=== PATIENT | female | born 1945 | race Caucasian/White ===

== ENCOUNTER 2023-04-28 14:54 | Outpatient (RCR) | payer MEDICARE, SELFPAY | END 2023-04-28 23:59 | disposition home or self-care (01) | LOC: RPT 14:54 | PROVIDERS: ATTENDING PHYSICIAN Physician Assistant Surgical; FAMILY PHYSICIAN Family Medicine | DX: S76.109D Unspecified injury of unspecified quadriceps muscle, fascia and tendon, subsequent encounter (principal); Z73.6 Limitation of activities due to disability | CPT/HCPCS: 97010; 97110; 97112; 97116; 97530 ==

== ENCOUNTER → 2023-04-29 07:30 | Outpatient (REF) | payer MEDICARE, SELFPAY | LOC: EMG 07:30 | PROVIDERS: ATTENDING PHYSICIAN Family Medicine | DX: R20.0 Anesthesia of skin (principal) | CPT/HCPCS: 95886; 95910 ==

== ENCOUNTER → 2023-05-19 08:21 | Outpatient (REF) | payer MEDICARE, SELFPAY ==
[2023-05-19 09:27] LABS: ALT (SGPT) < 10 U/L (0-35); AST (SGOT) 19 U/L (14-36); Albumin 4.1 g/dl (3.5-5.0); Alkaline Phosphatase 63 U/L (38-126); Blood Urea Nitrogen 13 mg/dl (7-17); Calcium 9.6 mg/dl (8.4-10.2); Carbon Dioxide 29 mmol/L (22-30); Chloride 98 mmol/L (98-107); Glucose 95 mg/dl (70-99); Potassium 5.1 mmol/L (3.5-5.1); Sodium 135 mmol/L (135-145); Total Bilirubin 0.6 mg/dl (0.2-1.3); Total Protein 6.6 g/dl (6.3-8.2); eGFR > 60.00
[2023-05-19 09:36] LABS: Free T4 0.76 ng/dl (0.78-2.19)
[2023-05-19 09:37] LABS: Free T3 3.38 pg/ml (2.77-5.27)
[2023-05-19 09:49] LABS: TSH 1.46 uIU/ml (0.47-4.68)
== END ==
LOC: REG 08:21
PROVIDERS: ATTENDING PHYSICIAN Internal Medicine Endocrinology, Diabetes & Metabolism; FAMILY PHYSICIAN Family Medicine
DX: E05.90 Thyrotoxicosis, unspecified without thyrotoxic crisis or storm (principal)
CPT/HCPCS: 36415; 80053; 84439; 84443; 84481

== ENCOUNTER → 2023-05-28 15:34 | Outpatient (REF) | payer MEDICARE, SELFPAY | LOC: RAD 15:34 | PROVIDERS: ATTENDING PHYSICIAN Specialist; FAMILY PHYSICIAN Family Medicine | DX: R26.89 Other abnormalities of gait and mobility (principal) | CPT/HCPCS: 70450 ==

== ENCOUNTER 2023-05-29 14:18 | Outpatient (RCR) | payer MEDICARE, SELFPAY | END 2023-05-29 23:59 | disposition home or self-care (01) | LOC: RPT 14:18 | PROVIDERS: ATTENDING PHYSICIAN Physician Assistant Surgical; FAMILY PHYSICIAN Family Medicine | DX: S76.109D Unspecified injury of unspecified quadriceps muscle, fascia and tendon, subsequent encounter (principal); Z73.6 Limitation of activities due to disability | CPT/HCPCS: 97110; 97112; 97116; 97530 ==

== ENCOUNTER → 2023-06-23 16:17 | Outpatient (REF) | payer MEDICARE, SELFPAY ==
[2023-06-23 18:51] LABS: Vitamin B12 812 pg/ml (239-931)
== END ==
LOC: REG 16:17
PROVIDERS: ATTENDING PHYSICIAN Family Medicine
DX: E53.8 Deficiency of other specified B group vitamins (principal)
CPT/HCPCS: 36415; 82607

== ENCOUNTER 2023-06-27 12:43 | Outpatient (RCR) | payer MEDICARE, SELFPAY | END 2023-06-27 23:59 | disposition home or self-care (01) | LOC: RPT 12:43 | PROVIDERS: ATTENDING PHYSICIAN Physician Assistant Surgical; FAMILY PHYSICIAN Family Medicine | DX: S76.109D Unspecified injury of unspecified quadriceps muscle, fascia and tendon, subsequent encounter (principal); Z73.6 Limitation of activities due to disability | CPT/HCPCS: 97110; 97112; 97116 ==

== ENCOUNTER → 2023-07-14 09:16 | Outpatient (REF) | payer MEDICARE, SELFPAY | LOC: RAD 09:16 | PROVIDERS: ATTENDING PHYSICIAN Family Medicine | DX: I83.893 Varicose veins of bilateral lower extremities with other complications (principal) | CPT/HCPCS: 93970 ==

== ENCOUNTER 2023-07-21 15:06 | Outpatient (RCR) | payer MEDICARE, SELFPAY | END 2023-07-21 23:59 | disposition home or self-care (01) | LOC: RPT 15:06 | PROVIDERS: ATTENDING PHYSICIAN Physician Assistant Surgical; FAMILY PHYSICIAN Family Medicine | DX: S76.109D Unspecified injury of unspecified quadriceps muscle, fascia and tendon, subsequent encounter (principal); Z73.6 Limitation of activities due to disability | CPT/HCPCS: 97110; 97112; 97116; 97530 ==

== ENCOUNTER 2023-08-18 15:10 | Outpatient (RCR) | payer MEDICARE, SELFPAY | END 2023-08-18 23:59 | disposition home or self-care (01) | LOC: RPT 15:10 | PROVIDERS: ATTENDING PHYSICIAN Physician Assistant Surgical; FAMILY PHYSICIAN Family Medicine | DX: S76.109D Unspecified injury of unspecified quadriceps muscle, fascia and tendon, subsequent encounter (principal); Z73.6 Limitation of activities due to disability; R26.89 Other abnormalities of gait and mobility | CPT/HCPCS: 97110; 97112; 97140; 97530 ==

== ENCOUNTER 2023-08-20 21:47 | Emergency (ER) | payer MEDICARE, SELFPAY ==
[2023-08-20 21:49] VITALS: BP 125/83; BMI 30.3
--- NOTE | 2023-08-20 23:44 | ED.GENMED ---
History of Present Illness
General
Chief Complaint: Fall
Source: patient
Exam Limitations: none
Time Seen by Provider: 08/20/23 23:36
Travel History
Have you had any contact with someone who has COVID-19?: No
Do you have any symptoms of coronavirus? Fever > 100 degrees, chills, cough, shortness of breath, sore throat, loss of taste or smell, muscle aches, or headache?: No
History of Present Illness
History of Present Illness:
See MDM
Past History
Past History
ED Past Medical History: HTN and Hypercholesterolemia
ED Past Surgical History: Gynecological
Social History
Tobacco: Non-smoker
Alcohol: Occasional
Drug: None
Living: alone
Phy Exam
Physical Exam
Physical Exam:
See MDM
Course
Orders/Labs/Results
Orders:
Orders
08/20/23 21:52
Shoulder, Right, Trauma [CR Shoulder, Trauma - Right] Urgent
Comment:
Reason For Exam: pain
08/20/23 23:44
Acetaminophen with Codeine [Tylenol #3] 1 tablet PO NOW STA
Vital Signs
Initial and Last Documented VS:
Initial Vital Signs
Temp Pulse Resp BP Pulse Ox
98 F 92 16 125/83 98
08/20/23 21:49 08/20/23 21:49 08/20/23 21:49 08/20/23 21:49 08/20/23 21:49
Last Documented Vital Signs
Temp Pulse Resp BP Pulse Ox
98 F 92 16 125/83 98
08/20/23 21:49 08/20/23 21:49 08/20/23 21:49 08/20/23 21:49 08/20/23 21:49
MDM/Problems Addressed
Differential Diagnosis Includes:
HPI and MDM Narrative:
78-year-old female presenting with right shoulder injury. She fell out of bed the other night. Due to ongoing pain despite taking Tylenol at home, she came in. On exam, patient states her pain well-controlled unless she tries to move her shoulder.
I cannot elicit any tenderness to palpation. There is no bony tenderness. The joint is stable and the distal extremity is neurovascular intact. There is pain with abduction and internal rotation. We discussed the possibility of rotator cuff
injury and discussed follow-up with orthopedics. Will avoid shoulder sling. 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 I want to frozen shoulder. Patient acknowledges understanding
Physical exam
General: Well appearing and non-toxic
HEENT: protecting airway
Neck: appears supple
CV: No evidence of cyanosis
Resp: No accessory muscle use
Abd: Non-distended
Extremities: No deformities. No bony tenderness to palpation of right shoulder. No edema noted. Distal extremity neurovascular intact pain with abduction and internal rotation
Neuro: alert
Psych: Normal affect
Skin: Intact
Problems Addressed including Acute and Chronic Conditions affecting care:
1. Right shoulder injury
Acuity: acute
Prognosis: stable
Details: X-ray negative for fracture. Discussed the possibility of rotator cuff injury. Patient states she cannot take NSAIDs. She has tolerated Tylenol 3 in the past. Will write short prescription
Differential Diagnosis (but not limited to): Shoulder fracture, rotator cuff injury
Testing considered: Shoulder CT but no bony tenderness elicited
Drug therapy (if applicable): OTC meds, please see d/c instruction regarding Rx drugs
Amount and/or Complexity of Data Reviewed
Clinical info obtained from: Patient
External data reviewed: N/A
Labs I independently reviewed (but not limited to): N/A
Radiology: X-ray independently reviewed: Shoulder x-ray shows arthritic changes. No fracture
Pulse Ox: not hypoxic
EKG independently reviewed: N/A
Logistical Engineer: N/A
Critical Care: N/A
Risk of Complication:
Social Determinants of health: Good social support
Discussed with other providers: N/A
Escalation of Care includes Admit/Obs: After being observed in the Emergency Department, pt stable for discharge.
Occasional wrong word or 'sound a like' substitutions may have occurred due to the inherent limitations of voice recognition software. Read the chart carefully and recognize, using context, where substitutions have occurred.
*Critical Care Note
Total Time (30-74mins, 75-104mins- exclusive of procedures): Not Applicable
ED Attending Note
-
Portions of this chart may have been created with voice recognition software.� Occasional wrong word or��sound alike� substitutions may have occurred due to the inherent limitations of voice recognition software.
Discharge Plan
Departure
Patient Disposition: Home (Routine Discharge)
Date of Disposition: 08/20/23
Time of Disposition: 23:44
Patient with high blood pressure during this ER visit?: No
Discharge Problem:
Injury of right rotator cuff
Prescriptions:
New
acetaminophen-codeine 300-30 mg Tablet
1 tab PO Q4HPRN PRN (Reason: pain) Qty: 10 0RF
No Action
hydrocortisone [Cortef] 5 MG tablet
10 mg PO BID
valsartan [Diovan] 80 MG tablet
40 mg PO DAILY
methimazole 5 mg Tablet
5 mg PO DAILY
rosuvastatin [Crestor] 5 mg Tablet
5 mg PO DAILY
duloxetine [Cymbalta] 30 mg Capsule,Delayed Release(Dr/Ec)
30 mg PO DAILY
aspirin 325 mg Tablet
325 mg PO DAILY Qty: 1 0RF
Rx Instructions:
For DVT prophylaxis post Ortho surgery
docusate sodium 100 mg Capsule
100 mg PO BID Qty: 1 0RF
sennosides [Senna Laxative] 8.6 mg Tablet
17.2 mg PO BID Qty: 1 0RF
oxycodone 5 mg Tablet
5 mg PO Q4HPRN PRN (Reason: mild pain) Qty: 12 0RF
acetaminophen 325 mg Tablet
650 mg PO Q4HWA Qty: 1 0RF
Referrals:
Yumiko Silva DO [Family Provider] -
Dariel Seo MD [Active] -
Activity Restrictions/Additional Instructions:
Please return for any worsening symptoms.
You may return at any time if you have further concerns.
Please follow up with your doctor at the first available appointment, preferably this week.
Please make an appointment to see the orthopedist.
You were given a prescription for narcotics. If you require this pain medicine, please take a daily [id number] stool softener to avoid constipation.
Thank you for choosing [facility].
Interventions
Interventions:
*Risk Screen - Suicide Last Done: 08/20/23 21:49
*Neglect/Abuse Screening Last Done: 08/20/23 21:49
ED- Fall Risk Assessment Last Done: 08/20/23 21:49
ED-Musculoskeletal Assessment Last Done: 08/20/23 22:12
ED- Neurological Assessment Last Done: 08/20/23 22:12
ED-Skin Assessment Last Done: 08/20/23 22:12
Discharge Date and Time
Print Language: CHINESE
[2023-08-20] MEDS: TYLENOL #3 1 TABLET PO (23:52)
[2023-08-21 00:01] VITALS: BP 139/91
== END 2023-08-21 00:01 | disposition home or self-care (01) ==
LOC: EMR 21:47
PROVIDERS: EMERGENCY PHYSICIAN Student in an Organized Health Care Education/Training Program; FAMILY PHYSICIAN Family Medicine
DX: S46.001A Unspecified injury of muscle(s) and tendon(s) of the rotator cuff of right shoulder, initial encounter (principal); W06.XXXA Fall from bed, initial encounter
CPT/HCPCS: 99283; 73030

== ENCOUNTER → 2023-09-12 13:24 | Outpatient (REF) | payer MEDICARE, SELFPAY ==
[2023-09-12 15:27] LABS: ALT (SGPT) 16 U/L (0-35); AST (SGOT) 23 U/L (14-36); Albumin 4.9 g/dl (3.5-5.0); Alkaline Phosphatase 65 U/L (38-126); Blood Urea Nitrogen 13 mg/dl (7-17); Carbon Dioxide 27 mmol/L (22-30); Chloride 96 mmol/L (98-107); Glucose 106 mg/dl (70-99); Potassium 4.6 mmol/L (3.5-5.1); Sodium 134 mmol/L (135-145); Total Bilirubin 0.4 mg/dl (0.2-1.3); Total Protein 7.6 g/dl (6.3-8.2); eGFR > 60.00
== END ==
LOC: RAD 13:24
PROVIDERS: ATTENDING PHYSICIAN Internal Medicine Endocrinology, Diabetes & Metabolism; FAMILY PHYSICIAN Family Medicine; REFERRING PHYSICIAN Internal Medicine Rheumatology
DX: E04.2 Nontoxic multinodular goiter (principal); M81.0 Age-related osteoporosis without current pathological fracture
CPT/HCPCS: 36415; 76536; 80053

== ENCOUNTER 2023-09-17 11:08 | Outpatient (RCR) | payer MEDICARE, SELFPAY | END 2023-09-17 23:59 | disposition home or self-care (01) | LOC: RPT 11:08 | PROVIDERS: ATTENDING PHYSICIAN Orthopaedic Surgery Hand Surgery; FAMILY PHYSICIAN Family Medicine | DX: S76.102D Unspecified injury of left quadriceps muscle, fascia and tendon, subsequent encounter (principal); Z73.6 Limitation of activities due to disability; R26.2 Difficulty in walking, not elsewhere classified; M25.562 Pain in left knee | CPT/HCPCS: 97110; 97112; 97162 ==

== ENCOUNTER → 2023-10-04 09:35 | Outpatient (REF) | payer MEDICARE, SELFPAY | LOC: MRI 09:35 | PROVIDERS: ATTENDING PHYSICIAN Specialist; FAMILY PHYSICIAN Family Medicine | DX: R26.89 Other abnormalities of gait and mobility (principal) | CPT/HCPCS: 70551 ==

== ENCOUNTER 2023-10-06 13:38 | Outpatient (RCR) | payer MEDICARE, SELFPAY | END 2023-10-13 05:54 | disposition home or self-care (01) | LOC: RPT 13:38 | PROVIDERS: ATTENDING PHYSICIAN Specialist; FAMILY PHYSICIAN Family Medicine | DX: R26.89 Other abnormalities of gait and mobility (principal) | CPT/HCPCS: 97110; 97162 ==

== ENCOUNTER → 2023-10-24 16:32 | Outpatient (REF) | payer MEDICARE, SELFPAY | LOC: RAD 16:32 | PROVIDERS: ATTENDING PHYSICIAN Family Medicine | DX: R60.0 Localized edema (principal) | CPT/HCPCS: 93970 ==

== ENCOUNTER → 2023-11-06 14:04 | Outpatient (REF) | payer MEDICARE, SELFPAY ==
[2023-11-06 17:19] LABS: Blood Urea Nitrogen 13 mg/dl (7-17); Calcium 9.7 mg/dl (8.4-10.2); Carbon Dioxide 24 mmol/L (22-30); Chloride 100 mmol/L (98-107); Glucose 105 mg/dl (70-99); Sodium 133 mmol/L (135-145); eGFR > 60.00
== END ==
LOC: RAD 14:04
PROVIDERS: ATTENDING PHYSICIAN Family Medicine
DX: S09.90XA Unspecified injury of head, initial encounter (principal); E87.1 Hypo-osmolality and hyponatremia
CPT/HCPCS: 36415; 70450; 80048

== ENCOUNTER → 2023-12-26 09:24 | Outpatient (REF) | payer MEDICARE, SELFPAY | LOC: RAD 09:24 | PROVIDERS: ATTENDING PHYSICIAN Family Medicine | DX: E04.1 Nontoxic single thyroid nodule (principal) | CPT/HCPCS: 76536 ==

== ENCOUNTER → 2023-12-29 07:14 | Outpatient (REF) | payer MEDICARE, SELFPAY | LOC: EMG 07:14 | PROVIDERS: ATTENDING PHYSICIAN Physical Medicine & Rehabilitation; FAMILY PHYSICIAN Family Medicine | DX: R20.0 Anesthesia of skin (principal) | CPT/HCPCS: 95886; 95909 ==

== ENCOUNTER → 2024-01-09 08:41 | Outpatient (REF) | payer MEDICARE, SELFPAY ==
[2024-01-09 09:25] LABS: % Basophils 0.7 % (0-2); % Eosinophils 1.2 % (0-6); % Immature Granulocytes 0.3 % (0-0.5); % Lymphocytes 16.3 % (20.5-51.1); % Monocytes 5.9 % (1.7-9.3); % Neutrophils 75.6 % (42.2-75.2); Absolute Basophils 0.1 10^3/uL (0-0.2); Absolute Eosinophils 0.1 10^3/uL (0-0.7); Absolute Lymphocytes 1.4 10^3/uL (1.2-3.4); Absolute Monocytes 0.5 10^3/uL (0.1-0.6); Absolute Neutrophils 6.7 10^3/uL (1.4-6.5); Hematocrit 34.5 % (37.0-47.0); Hemoglobin 11.7 g/dL (12.0-16.0); Mean Corp Hgb Conc. 33.9 g/dL (33.0-37.0); Mean Corpuscular Hgb 30.5 pg (27.0-31.0); Mean Corpuscular Volume 89.8 fL (81.0-99.0); Mean Platelet Volume 9.7 fL (7.4-10.4); Nucleated Red Blood Cells % 0 %; Platelet Count 283 10^3/uL (130-400); Red Blood Cell Count 3.84 10^6/uL (4.20-5.40); Red Cell Dist. Width 13.5 % (11.5-14.5); White Blood Cell Count 8.8 10^3/uL (4.8-10.8)
[2024-01-09 09:50] LABS: Erythrocyte Sed Rate 17 mm/hour (0-20)
[2024-01-09 10:09] LABS: ALT (SGPT) 13 U/L (0-35); AST (SGOT) 19 U/L (14-36); Albumin 4.7 g/dl (3.5-5.0); Alkaline Phosphatase 59 U/L (38-126); Blood Urea Nitrogen 18 mg/dl (7-17); Calcium 9.3 mg/dl (8.4-10.2); Carbon Dioxide 22 mmol/L (22-30); Chloride 101 mmol/L (98-107); Glucose 90 mg/dl (70-99); Potassium 4.4 mmol/L (3.5-5.1); Sodium 138 mmol/L (135-145); Total Bilirubin 0.5 mg/dl (0.2-1.3); Total Protein 7.1 g/dl (6.3-8.2); eGFR > 60.00
[2024-01-09 11:12] LABS: Folate 11.5 ng/ml (2.76-20); Vitamin B12 545 pg/ml (239-931)
[2024-01-09 11:28] LABS: Glycohemoglobin (HgbA1c) 5.6 % (4.0-5.6)
== END ==
LOC: REG 08:41
PROVIDERS: ATTENDING PHYSICIAN Specialist; FAMILY PHYSICIAN Family Medicine
DX: G60.3 Idiopathic progressive neuropathy (principal); R26.89 Other abnormalities of gait and mobility; R20.2 Paresthesia of skin
CPT/HCPCS: 36415; 80053; 82607; 82746; 82784; 83036; 83521; 84155; 84165; 85025; 85652; 86334

== ENCOUNTER 2024-01-13 13:15 | Emergency (ER) | payer MEDICARE, SELFPAY ==
--- NOTE | 2024-01-13 13:17 | ED.GENMED ---
ED Provider Triage
<Zaira Sanford PA-C - Last Filed: 01/13/24 16:56>
-
Patient seen by provider in Triage?: Seen in Triage
Attestation: A medical screening examination has been initiated by a qualified medical provider. Based on the assessment performed at this time, it has been determined that an emergent medical condition may exist and the patient has been informed
that further medical evaluation and possible additional diagnostic testing may be needed.
HPI: 78yoF here after a fall out of bed this morning. Hit head on night stand. No LOC. No blood thinners. Presenting with a scalp laceration. Unknown last Tdap.
GENERAL: Alert , in no apparent distress
EYE: No visual abnormalities.
NECK: Trachea midline
ENT: No visible abnormalities.
LUNGS: No acute respiratory distress
NEUROLOGICAL: Alert and oriented
SKIN: Skin intact. No visible changes.
MUSCULOSKELETAL: Moving extremities normally
PSYCH: Normal and appropriate interaction.
This is a medical evaluation conducted in person to initiate diagnostic evaluation and provide initial therapeutics. Please see further documentation by the treating clinician.
Laceration irrigated in triage. CT head ordered.
History of Present Illness
<Zaira Sanford PA-C - Last Filed: 01/13/24 16:56>
General
Chief Complaint: Fall
Time Seen by Provider: 01/13/24 13:36
<Dara Luevano PA-C - Last Filed: 01/13/24 17:43>
General
Source: patient
Exam Limitations: none
Nursing documentation reviewed up to this point in time: agreed with
History of Present Illness
History of Present Illness:
PT IS A 78 Y/O f WITH H/O NEURPIATHY, HTN, chroinc dizziness
says she slipped off the bed onto the floor this morning and hit her head on the dresser
she had no LOC
no thinners
no nausea/vomiting/confusion/weakness
she has no neck pain or extremity pain or back pain
nothing taken for pain
her friends brought her
she has an aide that comes to her house a few days a week for a ew hours and has home pt
pt lives alone
Past History
<Zaira Sanford PA-C - Last Filed: 01/13/24 16:56>
Past History
ED Past Medical History: HTN and Hypercholesterolemia
ED Past Surgical History: Gynecological
Social History
Tobacco: Non-smoker
Alcohol: Occasional
Drug: None
Living: alone
Review of Systems
<Dara Luevano PA-C - Last Filed: 01/13/24 17:43>
Review of Systems
Allergies reviewed?: Yes
All Other Systems: Not applicable
Phy Exam
<Dara Luevano PA-C - Last Filed: 01/13/24 17:43>
Physical Exam
Physical Exam:
GENERAL: Alert , in no apparent distress
HEAD: R parietal laceration/small hematoma; approx 2 cm laceration
NECK: no midline tenderness, active ROM intact, no paraspinal muscle tenderness;
EYE: pupils equal and reactive, EOMs intact.
ENT: o/p clr, mmm. no hemotympanum
CARDIAC: Regular rate and rhythm, no edema
LUNGS: Clear breath sounds bilaterally, no acute respiratory distress, no wheezes/rales/rhonchi
ABDOMEN: Soft, without focal tenderness, no r/g, no cvat
NEUROLOGICAL: Alert and oriented, no focal neuro deficits, CN intact, 5/5 strength, sensation intact
SKIN: Warm and dry,
MUSCULOSKELETAL: No edema, well perfused.
PSYCH: Normal and appropriate interaction.
Course
<Zaira Sanford PA-C - Last Filed: 01/13/24 16:56>
Orders/Labs/Results
Orders:
Orders
01/13/24 13:22
CT Head W/o Iv Contrast Urgent
Comment:
Reason For Exam: head injury
Vital Signs
Initial and Last Documented VS:
Initial Vital Signs
Temp Pulse Resp BP Pulse Ox
98.2 F 86 18 155/93 99
01/13/24 13:18 01/13/24 13:18 01/13/24 13:18 01/13/24 13:18 01/13/24 13:18
Last Documented Vital Signs
Temp Pulse Resp BP Pulse Ox
98.2 F 86 18 155/93 99
01/13/24 13:18 01/13/24 13:18 01/13/24 13:18 01/13/24 13:18 01/13/24 13:18
<Dara Luevano PA-C - Last Filed: 01/13/24 17:43>
Orders/Labs/Results
Orders:
Orders
01/13/24 13:22
CT Head W/o Iv Contrast Urgent
Comment:
Reason For Exam: head injury
Vital Signs
Initial and Last Documented VS:
Initial Vital Signs
Temp Pulse Resp BP Pulse Ox
98.2 F 86 18 155/93 99
01/13/24 13:18 01/13/24 13:18 01/13/24 13:18 01/13/24 13:18 01/13/24 13:18
Last Documented Vital Signs
Temp Pulse Resp BP Pulse Ox
98.2 F 86 18 155/93 99
01/13/24 13:18 01/13/24 13:18 01/13/24 13:18 01/13/24 13:18 01/13/24 13:18
Procedures
<Dara Luevano PA-C - Last Filed: 01/13/24 17:43>
Laceration Closure
Right Scalp:
Status of Wound: clean
Size of Wound in cm: 2
Description of Wound Edges: sharp
Preparation: cleaned with saline
Anesthesia: 1% Lidocaine with epi
Revision/Debridement: routine- no revision
Type of Closure: single layer closure
Skin Closure Material: skin boom
Number of sutures: 2
<Dara Luevano PA-C - Last Filed: 01/13/24 17:43>
MDM/Problems Addressed
Differential Diagnosis Includes:
contusion, laceration, head injury, concussion
MDM/Problems Addressed:
78 y/o F with h/o htn, neuropathy, gait dysfucntion
fell off her bed this mornign onto the ground and hit her right head against hte nightstand
no loc
has laceration
no nauesa, vomiting, confusion, weakness, serious headache, neck pain
no thinners
2 cm laceration right parietal scalp
small STS
neuro is intact
no neck tendenress
no back tenderness
moves all extremities
head ct neg
laceration irrigate dand stapled
friends harman concerned about her going home alone
she does have friends and a caregiver
pt does not appear to be concussed
she agrees she is at her baslenie
<Dara Luevano PA-C - Last Filed: 01/13/24 17:43>
*Critical Care Note
Total Time (30-74mins, 75-104mins- exclusive of procedures): Not Applicable
ED Attending Note
<Zaira Sanford PA-C - Last Filed: 01/13/24 16:56>
-
Portions of this chart may have been created with voice recognition software.� Occasional wrong word or��sound alike� substitutions may have occurred due to the inherent limitations of voice recognition software.
Discharge Plan
Departure
Patient Disposition: Home (Routine Discharge)
Date of Disposition: 01/13/24
Time of Disposition: 15:24
Patient with high blood pressure during this ER visit?: Yes
Condition: Fair
Discharge Problem:
Minor head injury, Fall, Laceration of scalp
Instructions: Head Injury in Adults (DC), Laceration Repair With Boom (DC)
Prescriptions:
No Action
hydrocortisone [Cortef] 5 MG tablet
10 mg PO BID
valsartan [Diovan] 80 MG tablet
40 mg PO DAILY
methimazole 5 mg Tablet
5 mg PO DAILY
rosuvastatin [Crestor] 5 mg Tablet
5 mg PO DAILY
duloxetine [Cymbalta] 30 mg Capsule,Delayed Release(Dr/Ec)
30 mg PO DAILY
aspirin 325 mg Tablet
325 mg PO DAILY Qty: 1 0RF
Rx Instructions:
For DVT prophylaxis post Ortho surgery
docusate sodium 100 mg Capsule
100 mg PO BID Qty: 1 0RF
sennosides [Senna Laxative] 8.6 mg Tablet
17.2 mg PO BID Qty: 1 0RF
oxycodone 5 mg Tablet
5 mg PO Q4HPRN PRN (Reason: mild pain) Qty: 12 0RF
acetaminophen 325 mg Tablet
650 mg PO Q4HWA Qty: 1 0RF
acetaminophen-codeine 300-30 mg Tablet
1 tab PO Q4HPRN PRN (Reason: pain) Qty: 10 0RF
Referrals:
Yumiko Silva DO [Family Provider] - Follow up in 5-7 days (FOR4 STAPLE REMOVAL)
Activity Restrictions/Additional Instructions:
You had no signs of serious head injury. Your CAT scan was negative. Your wound was irrigated I placed 2 boom in the wound. You can keep them dry for 24 hours and then let them with warm water or in the shower once a day to ensure that the
scab does not form over the boom. They need to be removed in 5 to 7 days. Call your family doctor for an appointment for this. Take Tylenol for pain as needed. Return for any worsening symptoms like severe headache, vomiting, confusion,
weakness etc.
Interventions
Interventions:
*Risk Screen - Suicide Last Done: 01/13/24 13:18
*General Assessment Last Done: 01/13/24 13:18
*Neglect/Abuse Screening Last Done: 01/13/24 13:18
ED- Fall Risk Assessment Last Done: 01/13/24 15:56
*ED COVID-19 Vaccine History Last Done: 01/13/24 13:18
*Nursing Disposition Last Done: 01/13/24 15:56
ED-Musculoskeletal Assessment Last Done: 01/13/24 14:10
ED- Neurological Assessment Last Done: 01/13/24 14:10
ED-Skin Assessment Last Done: 01/13/24 14:10
Discharge Date and Time
Discharge Date/Time: 01/13/24 15:57
Print Language: GAMBIAN
[2024-01-13 13:18] VITALS: BP 155/93
== END 2024-01-13 15:57 | disposition home or self-care (01) ==
LOC: EMR 13:15
PROVIDERS: EMERGENCY PHYSICIAN Student in an Organized Health Care Education/Training Program; FAMILY PHYSICIAN Family Medicine
DX: S01.01XA Laceration without foreign body of scalp, initial encounter (principal); W06.XXXA Fall from bed, initial encounter; W22.09XA Striking against other stationary object, initial encounter; I10 Essential (primary) hypertension; E78.00 Pure hypercholesterolemia, unspecified
CPT/HCPCS: 12001; 99284; 70450

== ENCOUNTER → 2024-02-15 06:53 | Outpatient (REF) | payer MEDICARE, SELFPAY | LOC: MRI 06:53 | PROVIDERS: ATTENDING PHYSICIAN Specialist; FAMILY PHYSICIAN Family Medicine | DX: I63.9 Cerebral infarction, unspecified (principal) | CPT/HCPCS: 70551 ==

== ENCOUNTER → 2024-02-18 12:34 | Outpatient (REF) | payer MEDICARE, SELFPAY ==
[2024-02-18 12:40] VITALS: BP 139/65; BP_SYST 76
[2024-02-18 13:45] VITALS: BP 139/65
== END ==
LOC: RADI 12:34
PROVIDERS: ATTENDING PHYSICIAN Otolaryngology; FAMILY PHYSICIAN Family Medicine
DX: E04.1 Nontoxic single thyroid nodule (principal)
CPT/HCPCS: 88173; 10005